=== PATIENT | female | born 1970 | race Hispanic/Latino ===

== ENCOUNTER 2021-01-27 20:09 | Inpatient (IN) | payer BC ==
[~2021-01-27] VITALS: Ht 162.6 cm; Wt 112.5 kg
[~2021-01-27 20:09] MED LIST: LOSA1TAB42 PO; METF-444 PO
[2021-01-27 22:29] VITALS: BP 152/85
[2021-01-27 23:06] LABS: BASOPHILS % (AUTO) 0.2 % (0.0-5.0); EOSINOPHILS % (AUTO) 1.7 % (0.0-8.0); HEMATOCRIT 38.9 % (36-48); LYMPHOCYTES % (AUTO) 32.8 % (21.0-51.0); MEAN CORPUSCULAR HEMOGLOBIN 24.6 pg (27.0-33.0); MEAN CORPUSCULAR HGB CONC 31.1 g/dL (32.0-36.0); MEAN CORPUSCULAR VOLUME 79.1 fL (79-99); MONOCYTES % (AUTO) 5.9 % (3.0-13.0); PLATELET COUNT (AUTO) 218 K/uL (130-400); RED BLOOD CELL COUNT(AUTO) 4.92 MIL/uL (4.00-5.50); WHITE BLOOD COUNT (AUTO) 9.3 K/uL (4.8-10.8)
[2021-01-27 23:19] LABS: POTASSIUM 3.7 mmol/L (3.5-5.1)
[2021-01-27 23:25] LABS: BILIRUBIN,TOTAL 0.2 mg/dL (0.2-1.0); CRP QUANTITATIVE 47.1 mg/L (0.00-9.0)
[2021-01-27 23:30] LABS: CREATININE 0.7 mg/dL (0.5-1.5)
[2021-01-27 23:41] LABS: INR 0.94 (0.85-1.15); PROTHROMBIN TIME 10.3 SEC (9.6-11.6)
[2021-01-28] VITALS (10 sets, daily range): BP systolic 92–147; BP diastolic 65–89
[2021-01-28] MEDS ORDERED: FAMOTIDINE 20MG VIAL IV ONE (00:30)
[2021-01-28] MEDS ORDERED: DEXAMETHASONE SOD PHOSPHATE 4 MG/ML 1ML VIAL IVP SCH (00:30)
[2021-01-28 01:29] LABS: APPEARANCE,URINE Clear (CLEAR); BILIRUBIN,URINE Negative (NEGATIVE); COLOR,URINE Yellow (YELLOW); GLUCOSE, URINE (UA) Negative (NEGATIVE); KETONES,URINE Trace mg/dL (NEGATIVE); LEUKOCYTE ESTERASE ,URINE Trace (NEGATIVE); NITRATE,URINE Negative (NEGATIVE); OCCULT BLOOD,URINE Negative (NEGATIVE); PH,URINE 5.5 (5.0-8.0); PROTEIN,URINE Negative (NEGATIVE)
[2021-01-28 01:37] LABS: BACTERIA,URINE None Seen /HPF (None Seen); RBC,URINE None Seen /HPF (0-1); SQUAMOUS EPITHELIAL CELL,UR Rare /HPF (0-2); WBC,URINE 0-1 /HPF (0-1)
[2021-01-28 03:56] LABS: PLATELET FUNCTION ANALYSIS ADP 68 SEC (62-100)
[2021-01-28 03:57] LABS: HEMATOCRIT 38.9 % (36-48); PLATELET COUNT (AUTO) 218 K/uL (130-400)
[2021-01-28 04:20] LABS: PLATELET FUNCTION ANALYSIS EPI > 180 SEC (55-192)
[2021-01-28 05:55] LABS: HEMOGLOBIN A1C 7.5 % (4.0-6.0)
[2021-01-28] MEDS: INSULIN HUMULIN R 100 UNIT/ML 3ML SQ SCH ×4 (07:56→20:44)
[2021-01-28] MEDS: FAMOTIDINE 20MG TAB PO SCH (08:44)
[2021-01-28] MEDS: DEXAMETHASONE SOD PHOSPHATE 4 MG/ML 1ML VIAL IVP SCH (08:44)
[2021-01-28] MEDS: LOSARTAN 25 MG TABLET PO SCH (08:44)
[2021-01-28] MEDS: CETIRIZINE HCL 5 MG TABLET PO SCH (08:44)
[2021-01-28] MEDS ORDERED: IBUPROFEN 600 MG TABLET ONE (22:23)
[2021-01-28] MEDS ORDERED: IBUPROFEN 600 MG TABLET PO ONE (22:30)
[2021-01-29] VITALS (7 sets, daily range): BP systolic 106–138; BP diastolic 41–83
[2021-01-29] MEDS: INSULIN HUMULIN R 100 UNIT/ML 3ML SQ SCH ×4 (06:22→21:00)
[2021-01-29 07:18] LABS: HEPATITIS A ANTIBODY IGM Negative (Negative); HEPATITIS B CORE IGM Negative (Negative); HEPATITIS Bs ANTIGEN SCREEN P Negative (Negative)
[2021-01-29 07:19] LABS: BASOPHILS % (AUTO) 0.2 % (0.0-5.0); EOSINOPHILS % (AUTO) 0.1 % (0.0-8.0); HEMATOCRIT 35.9 % (36-48); LYMPHOCYTES % (AUTO) 18.4 % (21.0-51.0); MEAN CORPUSCULAR HEMOGLOBIN 24.3 pg (27.0-33.0); MEAN CORPUSCULAR HGB CONC 30.9 g/dL (32.0-36.0); MEAN CORPUSCULAR VOLUME 78.6 fL (79-99); MONOCYTES % (AUTO) 7.3 % (3.0-13.0); NEUTROPHILS % (AUTO) 73.7 % (40.0-77.0); PLATELET COUNT (AUTO) 251 K/uL (130-400); RED BLOOD CELL COUNT(AUTO) 4.57 MIL/uL (4.00-5.50); RED CELL DISTRIBUTION WIDTH 17.3 % (11.0-15.5); WHITE BLOOD COUNT (AUTO) 14.7 K/uL (4.8-10.8)
[2021-01-29 07:40] LABS: CREATININE 0.7 mg/dL (0.5-1.5); MAGNESIUM 2.2 mg/dL (1.80-2.40); PHOSPHORUS 5.1 mg/dL (2.5-4.9); POTASSIUM 3.9 mmol/L (3.5-5.1)
[2021-01-29] MEDS: CETIRIZINE HCL 5 MG TABLET PO SCH (08:53)
[2021-01-29] MEDS: LOSARTAN 25 MG TABLET PO SCH (08:54)
[2021-01-29] MEDS: FAMOTIDINE 20MG TAB PO SCH (08:54)
[2021-01-29] MEDS: DEXAMETHASONE SOD PHOSPHATE 4 MG/ML 1ML VIAL IVP SCH (08:54)
[2021-01-30] VITALS (8 sets, daily range): BP systolic 123–141; BP diastolic 51–87
[2021-01-30] MEDS: INSULIN HUMULIN R 100 UNIT/ML 3ML SQ SCH ×4 (05:36→21:04)
[2021-01-30 06:18] LABS: BASOPHILS % (AUTO) 0.2 % (0.0-5.0); EOSINOPHILS % (AUTO) 0.4 % (0.0-8.0); HEMATOCRIT 37.6 % (36-48); LYMPHOCYTES % (AUTO) 34.1 % (21.0-51.0); MEAN CORPUSCULAR HEMOGLOBIN 24.5 pg (27.0-33.0); MEAN CORPUSCULAR HGB CONC 30.6 g/dL (32.0-36.0); MONOCYTES % (AUTO) 7.4 % (3.0-13.0); NEUTROPHILS % (AUTO) 57.4 % (40.0-77.0); PLATELET COUNT (AUTO) 244 K/uL (130-400); RED CELL DISTRIBUTION WIDTH 17.4 % (11.0-15.5); WHITE BLOOD COUNT (AUTO) 11.4 K/uL (4.8-10.8)
[2021-01-30 06:40] LABS: ALBUMIN 2.8 g/dL (3.5-5.0); BILIRUBIN,TOTAL 0.2 mg/dL (0.2-1.0); CREATININE 0.8 mg/dL (0.5-1.5); POTASSIUM 4.3 mmol/L (3.5-5.1); TOTAL PROTEIN, SERUM 7.2 g/dL (6.0-8.3)
[2021-01-30] MEDS: FAMOTIDINE 20MG TAB PO SCH (09:22)
[2021-01-30] MEDS: DEXAMETHASONE SOD PHOSPHATE 4 MG/ML 1ML VIAL IVP SCH (09:23)
[2021-01-30] MEDS: CETIRIZINE HCL 5 MG TABLET PO SCH (09:23)
[2021-01-30] MEDS: LOSARTAN 25 MG TABLET PO SCH (09:23)
[2021-01-31] VITALS (12 sets, daily range): BP systolic 113–147; BP diastolic 63–82
[2021-01-31 05:07] LABS: BASOPHILS % (AUTO) 0.2 % (0.0-5.0); EOSINOPHILS % (AUTO) 0.4 % (0.0-8.0); HEMATOCRIT 36.7 % (36-48); LYMPHOCYTES % (AUTO) 27.3 % (21.0-51.0); MEAN CORPUSCULAR HEMOGLOBIN 24.4 pg (27.0-33.0); MEAN CORPUSCULAR HGB CONC 30.5 g/dL (32.0-36.0); MONOCYTES % (AUTO) 8.4 % (3.0-13.0); NEUTROPHILS % (AUTO) 63.3 % (40.0-77.0); PLATELET COUNT (AUTO) 232 K/uL (130-400); RED BLOOD CELL COUNT(AUTO) 4.59 MIL/uL (4.00-5.50); RED CELL DISTRIBUTION WIDTH 17.1 % (11.0-15.5); WHITE BLOOD COUNT (AUTO) 13.4 K/uL (4.8-10.8)
[2021-01-31 05:19] LABS: PROTHROMBIN TIME 10.9 SEC (9.6-11.6)
[2021-01-31 05:21] LABS: PARTIAL THROMBOPLASTIN TIME 23.4 SEC (26.3-35.5)
[2021-01-31] MEDS: INSULIN HUMULIN R 100 UNIT/ML 3ML SQ SCH ×4 (05:25→20:34)
[2021-01-31 05:35] LABS: ALBUMIN 2.8 g/dL (3.5-5.0); BILIRUBIN,TOTAL 0.2 mg/dL (0.2-1.0); CREATININE 0.7 mg/dL (0.5-1.5); POTASSIUM 3.9 mmol/L (3.5-5.1)
[2021-01-31] MEDS: DEXAMETHASONE SOD PHOSPHATE 4 MG/ML 1ML VIAL IVP SCH (08:33)
[2021-01-31] MEDS: LOSARTAN 25 MG TABLET PO SCH (08:33)
[2021-01-31] MEDS: CETIRIZINE HCL 5 MG TABLET PO SCH (08:33)
[2021-01-31] MEDS: FAMOTIDINE 20MG TAB PO SCH (08:34)
[2021-01-31] MEDS ORDERED: 0.9%NACL 1000ML 1,000 ML IV ONE (11:45)
[2021-01-31] MEDS ORDERED: MIDAZOLAM HCL 1 MG/ML 2ML VIAL ONE (12:36)
[2021-01-31] MEDS ORDERED: ONDANSETRON 4MG INJ ONE (12:36)
[2021-01-31] MEDS ORDERED: LIDOCAINE PF 100MG/5ML (2%) SYRINGE 5ML ONE (12:36)
[2021-01-31] MEDS ORDERED: SUCCINYLCHOLINE CHLORIDE 20 MG/ML 10 ML VIAL ONE (12:36)
[2021-01-31] MEDS ORDERED: DEXAMETHASONE SOD PHOSPHATE 10MG/ML 1ML VIAL ONE (12:36)
[2021-01-31] MEDS ORDERED: ROCURONIUM 10MG/1ML SYR 10 MG/ML ML ONE (12:37)
[2021-01-31] MEDS ORDERED: GLYCOPYRROLATE 1 MG/5 ML SYRINGE ONE (12:37)
[2021-01-31] MEDS ORDERED: PROPOFOL 10 MG/ML 20ML VIAL IV ONE (12:37)
[2021-01-31] MEDS ORDERED: FENTANYL CITRATE PF 50 MCG/1 ML 2ML VIAL ONE (12:37)
[2021-01-31] MEDS ORDERED: BUPIVACAINE/EPI/PF 0.25% 10ML VIAL IJ ONE (12:44)
[2021-01-31] MEDS ORDERED: LIDOCAINE HCL 1% 20 ML VIAL ONE (12:44)
[2021-01-31] MEDS ORDERED: CEFAZOLIN SODIUM 1 GM VIAL ONE (12:55)
[2021-02-01 04:09] VITALS: BP 124/64
[2021-02-01 04:56] LABS: BASOPHILS % (AUTO) 0.2 % (0.0-5.0); EOSINOPHILS % (AUTO) 0.3 % (0.0-8.0); HEMATOCRIT 35.4 % (36-48); LYMPHOCYTES % (AUTO) 27.1 % (21.0-51.0); MEAN CORPUSCULAR HEMOGLOBIN 24.6 pg (27.0-33.0); MEAN CORPUSCULAR HGB CONC 31.1 g/dL (32.0-36.0); MEAN CORPUSCULAR VOLUME 79.2 fL (79-99); MONOCYTES % (AUTO) 6.8 % (3.0-13.0); NEUTROPHILS % (AUTO) 65.2 % (40.0-77.0); PLATELET COUNT (AUTO) 226 K/uL (130-400); RED BLOOD CELL COUNT(AUTO) 4.47 MIL/uL (4.00-5.50); RED CELL DISTRIBUTION WIDTH 16.9 % (11.0-15.5); WHITE BLOOD COUNT (AUTO) 13.4 K/uL (4.8-10.8)
[2021-02-01 05:11] LABS: ALBUMIN 2.7 g/dL (3.5-5.0); BILIRUBIN,TOTAL 0.2 mg/dL (0.2-1.0); CREATININE 0.6 mg/dL (0.5-1.5); POTASSIUM 3.8 mmol/L (3.5-5.1)
[2021-02-01] MEDS: INSULIN HUMULIN R 100 UNIT/ML 3ML SQ SCH ×3 (06:41→16:30)
[2021-02-01 07:30] VITALS: BP 136/63
[2021-02-01] MEDS ORDERED: METFORMIN HCL 500 MG TABLET PO SCH (08:00)
[2021-02-01] MEDS: DEXAMETHASONE SOD PHOSPHATE 4 MG/ML 1ML VIAL IVP SCH (09:34)
[2021-02-01] MEDS: CETIRIZINE HCL 5 MG TABLET PO SCH (09:35)
[2021-02-01] MEDS: LOSARTAN 25 MG TABLET PO SCH (09:35)
[2021-02-01] MEDS: FAMOTIDINE 20MG TAB PO SCH (09:35)
[2021-02-01 11:00] VITALS: BP 133/73
[2021-02-01] MEDS ORDERED: GLIP2.5T2 PO (13:38)
[2021-02-01] MEDS ORDERED: METF-444 PO (13:38)
== END 2021-02-01 17:20 | disposition home or self-care (01) | DRG 813 ==
LOC: EDH 20:09 → OBSVTOIN 01-28 02:11 → EDHIP 01-28 02:11 → 3AH 01-29 03:27
PROVIDERS: ADMIT Internal Medicine; ATTEND Internal Medicine
PROC: 0HBLXZX Excision of Left Lower Leg Skin, External Approach, Diagnostic (ICD-10-PCS; principal; 2021-01-31 12:32)
DX: D69.2 Other nonthrombocytopenic purpura (principal); Z68.41 Body mass index [BMI] 40.0-44.9, adult; M31.8 Other specified necrotizing vasculopathies; L95.9 Vasculitis limited to the skin, unspecified; E11.65 Type 2 diabetes mellitus with hyperglycemia; E66.01 Morbid (severe) obesity due to excess calories; Z20.822 Contact with and (suspected) exposure to COVID-19; I10 Essential (primary) hypertension; F41.9 Anxiety disorder, unspecified; L29.9 Pruritus, unspecified; T38.0X5A Adverse effect of glucocorticoids and synthetic analogues, initial encounter; Y92.89 Other specified places as the place of occurrence of the external cause; Z90.721 Acquired absence of ovaries, unilateral; Z90.49 Acquired absence of other specified parts of digestive tract; Z80.6 Family history of leukemia; Z83.3 Family history of diabetes mellitus; Z82.49 Family history of ischemic heart disease and other diseases of the circulatory system; Z82.0 Family history of epilepsy and other diseases of the nervous system; Z80.9 Family history of malignant neoplasm, unspecified
CPT/HCPCS: 36415; 80048; 80053; 80074; 81001; 82595; 82948; 83036; 83520; 83735; 84100; 85025; 85576; 85610; 85651; 85730; 86038; 86140; 86160; 86162; 86215; 86235; 86255; 86431; 86592; 86618; 86701; 87390; G0378; J0330; J0690; J1100; J1815; J2001; J2250; J2405; J2704; J3010; J3490; J7030

== ENCOUNTER 2021-02-28 09:50 | Emergency (ER) | payer BC ==
[~2021-02-28] VITALS: Ht 165.1 cm; Wt 108.9 kg
[~2021-02-28 09:50] MED LIST changes: +GLIP2.5T2 PO
[2021-02-28 09:51] VITALS: BP 143/93
== END 2021-02-28 11:46 | disposition home or self-care (01) ==
LOC: EDH 09:50
DX: L95.9 Vasculitis limited to the skin, unspecified (principal); Z79.899 Other long term (current) drug therapy; E11.9 Type 2 diabetes mellitus without complications; I10 Essential (primary) hypertension
CPT/HCPCS: 99281